=== PATIENT | female | born 1990 ===

== ENCOUNTER 2023-06-07 09:10 | Outpatient (CLI) | payer OTHER, SELFPAY | END 2023-06-07 09:11 | disposition home or self-care (01) | PROVIDERS: Visit Provider Orthopaedic Surgery | DX: M25.561 Pain in right knee (principal) | CPT/HCPCS: 73564 ==

== ENCOUNTER 2023-07-21 00:21 | Day surgery (SDC) | payer OTHER, SELFPAY ==
[2023-07-12 17:56] VITALS: BMI 35.6
--- NOTE | 2023-07-12 18:17 | PC.NURSE ---
Report to the Outpatient Waiting Room, entrance under the green pavilion located off [facility], at 1130 on 07-21-23. Planned Procedure Time: 1330. Time changes happen often and if your time is changed the preop area will call you the afternoon before. - You and your visitor will be asked to self-screen and do not enter if you have any COVID symptoms. - A mask is optional within the hospital at this time. Patients may have clear liquids (water, carbonated beverages, clear teas, apple juice) until 3 hours prior to surgery with a maximum of 20 ounces. 1030 - No food from midnight until time of surgery - Infants may have breast milk until 4 hours before surgery, formula 6 hours prior to surgery. - Children will be allowed to drink immediately following surgery. If applicable, please bring a bottle or sippy cup to assist with drinking. Juice, water, soda, and popsicles are readily available. For infants on formula, please bring formula the day of surgery. Pacifiers are allowed. Take the following medications with a SIP of water the morning of surgery: Tylenol if needed ; Bring albuterol inhaler DOS to the hospital DO NOT STOP ANY OF YOUR OTHER PRESCRIPTION MEDICATIONS PRIOR TO SURGERY ?EXCEPT THE FOLLOWING Medications to discontinue per physician: N/A Please no make-up, nail [place] citizen, hairspray, perfume, deodorant, or body powder the day of surgery. No jewelry (including any body piercings) or valuables the day of surgery, leave them at home. Please take a shower or bath the night before, or the morning of, surgery with an antibacterial soap. Wear comfortable, loose fitting clothing. Children are encouraged to wear pajamas. - Jewelry must be removed prior to entering the operating room. Rings and piercings that are not removed may be cut off. - The hospital will not accept responsibility for valuables. - Please leave all valuables, including medications, at home the day of surgery. If you are going home after surgery, a licensed car pick up driver must drive you home. - NO public transportation without another adult if you receive anesthesia. - We recommend that an adult stay with you for 24 hours following discharge. - We also recommend that you do not drive, make important decision, drink alcoholic beverages, or take any drugs that were not prescribed by your health care provider for at least 24 hours after your discharge time. For Pediatric surgeries, we recommend two adults accompany the child home. Follow any additional instructions given to you from your surgeon. If you or anyone in your household have experienced Covid symptoms in the past week, please notify your surgeon or the nurse liaison at the phone number below for possible testing. Telephone instructions given to Kendra Raymundo and asked if any additional questions and then verbalized understanding. Patient advised to call surgeon office or pre surgery nurse liaison [phone] if any additional questions.
[2023-07-21] VITALS (10 sets, daily range): BP systolic 109–136; BP diastolic 48–71; PULSE 61–102; RESP 14–18; TEMP 36.4–37.6; O2SAT 94–100
--- NOTE | 2023-07-21 07:08 | WPDHPUPDATE1 ---
History and Physical Update Update Date/Time: 07/21/23 07:08 History and Physical has been reviewed, including an updated exam of the patient. There are NO changes in the patient's condition. Risks, benefits, and alternatives have been discussed and questions answered. Patient agrees to proceed with procedure.
[2023-07-21] MEDS: ACETAMINOPHEN 500 MG TABLET 1000 MG PO (11:17)
--- NOTE | 2023-07-21 11:22 | WPDANESEPPF ---
Anes - Initial Pre Proc Eval Procedure: Operation Date: 07/21/23 13:00 Proposed Procedures p Right Knee Arthroscopic Partial Medial Meniscectomy - Daniel Mckeon MD Date/Time: 07/21/23 11:22 Surgeon: Daniel Mckeon MD Pre Op Diagnosis: Rt Knee Medial Meniscus Tear Patient Data Age: 33 Gender: F Height: 1.6 m Weight: 91.17 kg Allergies Allergy/AdvReac Type Severity Reaction Status Date / Time No Known Allergies Allergy Verified 07/21/23 11:08 Home Medications Medication Instructions Recorded Confirmed Type albuterol sulfate 90 mcg/actuation 1 inh inhalation Q4H 06/10/23 07/12/23 History aerosol inhaler acetaminophen 325 mg tablet 650 mg PO PRN PRN Pain, Mild 07/12/23 07/12/23 History (Tylenol) hydrocodone 5 mg-acetaminophen 325 1 - 2 tablet PO Q4-6H PRN pain #30 07/21/23 Rx mg tablet tabs Patient hx anesthesia problems: none Family hx anesthesia problems: none Results Review: All pre-operative results and documents have been reviewed as part of the pre-operative evaluation. FOR[facility]LY [facility] Past Medical History Medical History Tear of medial meniscus of right knee, current Surgical History Surgical History History of foot surgery Rt: 2006 & 2013 History of foot surgery (~07/07/22) Rt - Plantar Fasciotomy Hx of prior ablation treatment (~2015) Social History Social History Smoking status: Never smoker Second hand tobacco smoke exposure: No Alcohol intake: never Substance use: never Substance use type: does not use Do You Feel Safe in your Home?: Yes Lack of Transportation: No Lack of Food: Never True Current Housing: I Have Housing Concerned About Future Housing: No Difficulty Paying Gas/Electric Bills: No Difficulty Paying for Meds: No Currently Unemployed: No Education: High School Diploma/GED Difficulty w/ Childcare or Family Care: No Living arrangements: with family Spiritual care concerns: No Anes - Eval Final PreProcedure Day of Procedure 07/21/23 11:22 Patient weight: obese Heart: regular rate and rhythm Lungs: clear to auscultation Airway: Mallampati scale class II Neurological: alert and oriented Last oral intake: >/= 8 hours ASA classification: II Emergent: no Anesthetic plan: proceed Anesthesia type and monitoring: general GIVS and standard monitoring Results Review: All pre-operative results and documents have been reviewed as part of the pre-operative evaluation. Informed Consent: The patient's anesthetic plan and its attendant risks and benefits were discussed with the patient/family/POA. Questions were solicited and answers provided to the satisfaction of the patient/family/POA.
[2023-07-21] MEDS: LACTATED RINGERS 1,000 ML 30 ML IV CONT ×2 (11:50→13:30)
[2023-07-21] MEDS: KETOROLAC 15 MG/ML VIAL (*BKC) IV PUSH (11:51)
[2023-07-21] MEDS: ceFAZolin 2 GM/D5W 50 ML 2 GM/50 ML BAG IVPB (12:15)
[2023-07-21] MEDS: BUPIVACAINE/EPINEPHRINE 0.5% 10 ML VIAL 20 ML INFILTRATE (12:57)
--- NOTE | 2023-07-21 15:22 | W.PM.PROC2 ---
Procedure Note - Detailed Date of Procedure 07/21/23 Pre-op Diagnosis Rt Knee Medial Meniscus Tear Post-op Diagnosis Other (1. Right knee medial meniscus tear 2. Right knee osteochondral defect medial femoral condyle (5 x 10mm)) Procedure Performed Right knee 1. Arthroscopic microfracture of medial femoral osteochondral defect (5 x 10 mm) 2. Arthroscopic partial medial meniscectomy Surgeon Daniel Mckeon MD Anesthesia General Findings The anterior horn had a mild tear of the meniscus. There was some scar tissue in this area and hypertrophy of the fat pad. 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 With minimal gentle debridement the bone was exposed. The defect was narrow at only 5 mm and approximately 10 mm in length, and the surrounding periphery of cartilage appeared very normal. The defect was nicely contained, and amenable to microfracture. The awl was used to create 3 perforations in the femoral bone. And 0.32 K-wire was drilled to create a slightly deeper channel for bone egress. The hypertrophic fat pad tissue was resected and the patella looked good other than central area of grade 1/2 chondromalacia. Description of Procedure Preoperative antibiotics were given. A general anesthetic was administered. The leg was placed in the arthroscopic leg lynne. The leg was prepped and draped in usual sterile fashion with a well-padded tourniquet high on the thigh. The limb was exsanguinated the tourniquet inflated to 300 mmHg during the procedure. Standard inferomedial and inferolateral arthroscopic portals were created. Inflow with the saline pump. Inspection revealed no abnormal findings in the superior pouch or the medial and lateral gutters. No loose bodies or other abnormalities initially observed. The patella showed an area of grade 1/2 chondromalacia centrally but otherwise was healthy. The infrapatellar tissue was rather thick and of gentle debridement was performed. The patient had some peripatellar symptoms preoperatively. Moving into the medial compartment the tissue was quite hypertrophic and there appeared to be some scarring. There was tearing of the anterior horn of the medial meniscus which was gently debrided. The anterior horn attachments remained stable. The remainder of the meniscus was carefully probed and found to be stable without any other evidence of tearing. The lateral compartment was normal with intact healthy articular cartilage and a normal-appearing meniscus. The ACL was also normal. The medial femoral condyle at its central weight-bearing portion had a stripe of the physicians and high-grade chondromalacia. Minimal shaving was required due revealed a significant osteochondral defect. Rather narrow at 5 mm and relatively longer at 10 mm. The surrounding periphery of cartilage was quite healthy after a careful curettage. The defect was nicely contained and amenable to microfracture. The angled awl was used to create 3 perforations into the hard bone of the defect base. The central hole was kept smaller due to the proximity to the others. An 0.32 K-wire was used to assure good penetration into the bone marrow. The tourniquet was released. Good bleeding was confirmed. The radiofrequency probe was used to stabilize the anterior meniscal rim as well as gently cauterize the infrapatella tissue. The arthroscopic instruments were removed. The wounds were closed with interrupted 4-0 Monocryl suture followed by Steri-Strips. A sterile padded dressing was applied. The patient was extubated and transferred to the recovery room. No complications. She was the operative findings and procedure were reviewed with the patient after she woke. Estimated Blood Loss 10 Pathology None sent Complications No immediate complications Condition Stable Disposition PACU [facility] Billing Surgery - Charge Forward: Surgery Billing
== END 2023-07-21 15:49 | disposition home or self-care (01) ==
PROVIDERS: Visit Provider Orthopaedic Surgery
PROC: (CPT 29870; principal; 2023-07-21 13:00)
DX: S83.241A Other tear of medial meniscus, current injury, right knee, initial encounter (principal); M94.261 Chondromalacia, right knee; E66.9 Obesity, unspecified; Z68.35 Body mass index [BMI] 35.0-35.9, adult; Z79.51 Long term (current) use of inhaled steroids; Z79.891 Long term (current) use of opiate analgesic; Z98.890 Other specified postprocedural states; X58.XXXA Exposure to other specified factors, initial encounter
CPT/HCPCS: 29881; 29879; A9270; J0690; J1100; J1885; J2250; J2405; J2704; J3010; J7120

== ENCOUNTER 2023-12-21 08:12 | Outpatient (CLI) | payer OTHER, SELFPAY ==
--- NOTE | ~2023-12-21 | XR_ITS ---
XR knee RT min 4V Ordering provider: Daniel Mckeon MD History: . Z98.890 - Other specified postprocedural states . Comparison: June 07, 2023 FINDINGS: BONES: No acute fracture or dislocation. JOINT SPACES: Normal. SOFT TISSUES: Normal. IMPRESSION: No acute osseous abnormality right knee. Reviewed, dictated and finalized at location A.
== END 2023-12-21 08:13 | disposition home or self-care (01) ==
LOC: MICIMG 08:13
PROVIDERS: PCP Orthopaedic Surgery; Visit Provider Orthopaedic Surgery
DX: Z98.890 Other specified postprocedural states (principal)
CPT/HCPCS: 73564